=== PATIENT | male | born 1995 | race American Indian/Alaskan Native ===

== ENCOUNTER 2018-12-06 06:11 | Emergency (ER) | payer SELFPAY ==
[2018-12-06] MEDS ORDERED: KEPPRA 1,000 MG/NS 0.75% 100ML 1,000 MG/100 ML BAG IV ONE (06:26)
[2018-12-06] MEDS ORDERED: TORADOL IV ONE (06:26)
--- NOTE | 2018-12-06 06:57 | XRay Report ---
Left shoulder-3 views INDICATION: pain after SZ. COMPARISON: None. IMPRESSION: No acute osseous or soft tissue abnormality. No significant DJD. Signer Name: Omar Sorensen MD Signed: 12/06/2018 6:52 AM Workstation Name: [id number]
--- NOTE | 2018-12-06 07:17 | Emergency Department Report ---
ED General Adult HPI - General Chief complaint: Seizure Stated complaint: SEIZURE Time Seen by Provider: 12/06/18 06:20 Source: patient, EMS Mode of arrival: Ambulatory Limitations: No Limitations - History of Present Illness Initial comments: 23-year-old male found in a local hotel with significant other by paramedics after a seizure. He resides out of [facility]. They state that he experienced a seizure after he received "medication for migraine" in an emergency elsewhere. That was less than 6 months ago. He was not placed on anticonvulsants. He had 2 seizures today. He is complaining of left shoulder pain after seizure. Otherwise he is reasonably awake and has returned to his baseline. Location: left, upper extremity Severity scale (0 -10): 9 Quality: aching Consistency: constant Improves with: none Worsens with: movement Associated Symptoms: denies other symptoms Treatments Prior to Arrival: none - Related Data Previous Rx's Medication Instructions Recorded Last Taken Type Naproxen [Naprosyn] 500 mg PO BID PRN #10 tablet 12/06/18 Unknown Rx levETIRAcetam [Keppra TAB] 500 mg PO BID #60 tablet 12/06/18 Unknown Rx Allergies Allergy/AdvReac Type Severity Reaction Status Date / Time No Known Allergies Allergy Verified 12/06/18 06:33 ED Review of Systems ROS: Stated complaint: SEIZURE Other details as noted in HPI Constitutional: denies: chills, fever Eyes: denies: eye pain, eye discharge, vision change ENT: denies: ear pain, throat pain Respiratory: denies: cough, shortness of breath, wheezing Cardiovascular: denies: chest pain, palpitations Endocrine: no symptoms reported Gastrointestinal: denies: abdominal pain, nausea, diarrhea Genitourinary: denies: urgency, dysuria Musculoskeletal: as per HPI (shoulder pain after seizure). denies: back pain, joint swelling, arthralgia Skin: denies: rash, lesions Neurological: denies: headache, weakness, paresthesias Psychiatric: denies: anxiety, depression Hematological/Lymphatic: denies: easy bleeding, easy bruising ED Past Medical Hx - Past Medical History Previous Medical History?: Yes Hx Seizures: Yes - Surgical History Past Surgical History?: No - Social History Smoking Status: Never Smoker Substance Use Type: None - Medications Home Medications: Home Medications Medication Instructions Recorded Confirmed Last Taken Type Naproxen [Naprosyn] 500 mg PO BID PRN #10 tablet 12/06/18 Unknown Rx levETIRAcetam [Keppra TAB] 500 mg PO BID #60 tablet 12/06/18 Unknown Rx ED Physical Exam - General Limitations: No Limitations General appearance: alert, in no apparent distress - Head Head exam: Present: atraumatic, normocephalic - Eye Eye exam: Present: normal appearance. Absent: scleral icterus - ENT ENT exam: Present: mucous membranes moist - Neck Neck exam: Present: normal inspection. Absent: tenderness, meningismus - Respiratory Respiratory exam: Present: normal lung sounds bilaterally. Absent: respiratory distress - Cardiovascular Cardiovascular Exam: Present: regular rate, normal rhythm. Absent: systolic murmur, diastolic murmur, rubs, gallop - GI/Abdominal GI/Abdominal exam: Present: soft, normal bowel sounds. Absent: distended, tenderness, guarding, rebound - Rectal Rectal exam: Present: deferred - Extremities Exam Extremities exam: Present: normal inspection, other (shoulder is somewhat tender to palpation but there is no deformity and it is not clinically dislocated.) - Back Exam Back exam: Present: normal inspection - Neurological Exam Neurological exam: Present: alert, oriented X3, CN II-XII intact. Absent: motor sensory deficit - Psychiatric Psychiatric exam: Present: normal affect, normal mood - Skin Skin exam: Present: warm, dry, intact, normal color. Absent: rash ED Course Vital Signs 12/06/18 12/06/18 06:27 06:33 Temperature 98.1 F Pulse Rate 74 Respiratory 18 16 Rate Blood Pressure 129/75 O2 Sat by Pulse 100 99 Oximetry - Reevaluation(s) Reevaluation #1: Patient observed. Remained seizure free. Appropriate for outpatient disposition. 12/06/18 08:00 ED Medical Decision Making - Lab Data Result diagrams: 12/06/18 06:42 12/06/18 06:42 Laboratory Results - last 24 hr 12/06/18 12/06/18 06:42 06:42 WBC 8.0 RBC 5.70 H Hgb 15.8 H Hct 47.8 H MCV 84 MCH 28 MCHC 33 RDW 12.9 L Plt Count 161 Lymph % (Auto) 16.1 [place] % (Auto) 9.7 H Eos % (Auto) 0.9 Baso % (Auto) 0.4 Lymph # 1.3 [place] # 0.8 Eos # 0.1 Baso # 0.0 Seg Neutrophils % 72.9 H Seg Neutrophils # 5.8 Sodium 139 Potassium 4.1 Chloride 100.6 Carbon Dioxide 22 Anion Gap 21 BUN 14 Creatinine 1.1 Estimated GFR > 60 BUN/Creatinine Ratio 13 Glucose 120 H Calcium 9.1 Magnesium 2.30 - Radiology Data Radiology results: report reviewed (normal shoulder), image reviewed Critical care attestation.: If time is entered above; I have spent that time in minutes in the direct care of this critically ill patient, excluding procedure time. ED Disposition Clinical Impression: Recurrent seizures Sprain of left shoulder Qualifiers: Encounter type: initial encounter Shoulder sprain type: unspecified sprain Qualified Code(s): S43.402A - Unspecified sprain of left shoulder joint, initial encounter Disposition: TO HOME OR SELFCARE Is pt being admited?: No Does the pt Need Aspirin: No Condition: Stable Instructions: Recurrent Seizures Adult (ED), Shoulder Sprain (ED) Additional Instructions: Do not drive until cleared by a physician. You should be seizure free for 6 months at a minimum. Rx for seizure. [id number] medication for your shoulder strain or Rx as needed. Return any acute change or problem. Do not operate heavy equipment either until advised that it is safe by a physician. Prescriptions: levETIRAcetam [Keppra TAB] 500 mg PO BID #60 tablet Naproxen [Naprosyn] 500 mg PO BID PRN #10 tablet PRN Reason: Pain, Moderate (4-6) Referrals: [facility] MD GINA [Primary Care Provider] - 2-3 Days KAYCE PALACIO MD [Staff Physician] - 3-5 Days Time of Disposition: 07:58
[2018-12-06 07:22] LABS: Basophils % (Auto) 0.4 % (0.0-1.8); Eosinophils # (Auto) 0.1 K/mm3 (0.0-0.4); Eosinophils % (Auto) 0.9 % (0.0-4.3); Hematocrit 47.8 % (35.5-45.6); Hemoglobin 15.8 gm/dl (11.8-15.2); Lymphocytes # (Auto) 1.3 K/mm3 (1.2-5.4); Lymphocytes % (Auto) 16.1 % (13.4-35.0); Mean Corpuscular HGB Conc 33 % (32-34); Mean Corpuscular Volume 84 fl (84-94); Monocytes # (Auto) 0.8 K/mm3 (0.0-0.8); Monocytes % (Auto) 9.7 % (0.0-7.3); Platelet Count 161 K/mm3 (140-440); Red Cell Distribution Width 12.9 % (13.2-15.2)
[2018-12-06 07:27] LABS: BUN/Creatinine Ratio 13; Blood Urea Nitrogen 14 mg/dL (9-20); Calcium 9.1 mg/dL (8.4-10.2); Hemolysis Index 14
[2018-12-06 08:23] VITALS: BP 116/69
== END 2018-12-06 08:23 | disposition home or self-care (01) ==
LOC: ED 06:11
DX: S43.402A Unspecified sprain of left shoulder joint, initial encounter (principal); R56.9 Unspecified convulsions; Z79.899 Other long term (current) drug therapy; X58.XXXA Exposure to other specified factors, initial encounter; Y93.89 Activity, other specified; Y92.89 Other specified places as the place of occurrence of the external cause; Y99.8 Other external cause status
CPT/HCPCS: 36415; 73030; 80048; 83735; 85025; 96374; 96375; 99284; J1885; J1953